=== PATIENT | female | born 1960 | race Hispanic/Latino ===

== ENCOUNTER 2018-02-12 18:41 | Emergency (ER) | payer OTHER ==
[2018-02-12 18:55] VITALS: BP 138/71; PULSE 70; RESP 19; TEMP 97.6; O2SAT 97
--- NOTE | 2018-02-12 20:02 | ED PDOC ---
Lower Extremity Pain/Injury Time Seen by Provider: 02/12/18 19:02 Chief Complaint (Nursing): Lower Extremity Problem/Injury Chief Complaint (Provider): Lower Extremity Problem/Injury History Per: Patient History/Exam Limitations: no limitations Onset/Duration Of Symptoms: Days (~21) Current Symptoms Are (Timing): Still Present Additional Complaint(s): 57 year old female presents to the ED with complaints of right knee and right lower leg pain for the last three weeks. Patient states it is only painful when she walks or bears weight. Patient expresses concern for DVT because she is currently on hormone therapy to alleviate menopause symptoms. Patient describes pain as a pulling sensation and has not taken any medications for it prior to arrival. Patient denies trauma, falls, shortness of breath, chest pain, fever, calf tenderness, pedal edema, nausea, vomiting, abdominal pain, prolonged immobility, and control use in the past. PMD: Dr. Rohan Salcedo ([facility]) Past Medical History Reviewed: Historical Data, Nursing Documentation, Vital Signs Vital Signs: Last Vital Signs Temp 97.6 F 02/12/18 18:51 Pulse 70 02/12/18 18:51 Resp 19 02/12/18 18:51 BP 138/71 02/12/18 18:51 Pulse Ox 97 02/12/18 18:51 - Medical History PMH: Depression, Osteoporosis Other PMH: A2 - Surgical History Surgical History: Appendectomy - Family History Family History: States: Unknown Family Hx - Social History Current smoker - smoking cessation education provided: No Alcohol: None Drugs: Other (Occasional Marijuana) - Home Medications Home Medications: Ambulatory Orders Medication Instructions Recorded Meloxicam [Mobic] 15 mg PO DAILY #14 tab 02/12/18 - Allergies Allergies/Adverse Reactions: Allergies Allergy/AdvReac Type Severity Reaction Status Date / Time No Known Allergies Allergy Verified 02/12/18 18:50 Review of Systems ROS Statement: Except As Marked, All Systems Reviewed And Found Negative Musculoskeletal: Positive for: Leg Pain (right lower leg), Other (right knee pain) Physical Exam - Reviewed Nursing Documentation Reviewed: Yes Vital Signs Reviewed: Yes - Physical Exam Comments: GENERAL APPEARANCE: Patient is awake, alert, oriented x 3, in no acute distress , ambulatory in the ED with a steady gait. SKIN: Warm, dry; (-) cyanosis. NECK: Supple, FROM (-) tenderness ENT: Mucus membranes moist. LOWER EXTREMITY: Knee: (-) reproducible tenderness of the right knee, (-) effusion, (-) ecchymosis, (+) full ROM with (+) mild pain on flexion, (-) skin break, (-) swelling, (-) erythema, , (-) palpable cord, (-) calf tenderness, (- ) instability of valgus or varus stress, (-) anterior and posterior draw sign. CHEST AND RESPIRATORY: (-) rales, (-) rhonchi, (-) wheezes; breath sounds equal bilaterally. Speaking in full sentences, respirations even and nonlabored. HEART AND CARDIOVASCULAR: (-) irregularity; (-) murmur, (-) gallop, (+) distal pulses. ABDOMEN AND GI: Soft; (-) tenderness (-) guarding (-) rebound. NEUROLOGIC: (+) distal sensation and strength intact - Laboratory Results Result Diagrams: 02/12/18 20:24 02/12/18 20:24 - ECG O2 Sat by Pulse Oximetry: 97 (RA) Pulse Ox Interpretation: Normal Medical Decision Making Medical Decision Making: Clinical Impression: Plan: -- CMP -- CBC (with differentials) -- Partial Thromboplastin (COAG) STAT -- Prothrombin (COAG) STAT -- Knee X-Ray (3 views) -- Toradol 30 mg IVP STAT -- IV Insertion (Saline) -- Duplex Lower Extremity Vein Right (US) STAT Time: 2105 Patient refused X-Ray at this time. 2140 U/S reviewed, radiology report follows EXAM: US Duplex Right Lower Extremity Veins EXAM DATE/TIME: 02/12/2018 7:41 PM CLINICAL HISTORY: 57 years old, female; Pain; Leg, lower; Right; Additional info: R/O dvt TECHNIQUE: Real-time duplex ultrasound scan of the right lower extremity veins integrating B-mode twodimensional vascular structure, Doppler spectral analysis, color flow Doppler imaging and compression. COMPARISON: No relevant prior studies available. FINDINGS: Deep veins: No DVT in the visualized common femoral, femoral, proximal deep femoral or popliteal veins. The veins demonstrate normal color flow, are normally compressible, with normal phasic flow and/or augmentation response. Calf veins are patent where imaged. Superficial veins: No thrombus in the visualized great saphenous vein. Soft tissues: No acute findings. No popliteal cyst. IMPRESSION: Normal right lower extremity duplex venous ultrasound. Thank you for allowing us to participate in the care of your patient. Dictated and Authenticated by: Daryn Anna MD 02/12/2018 9:21 PM Eastern Time ([place] & [place]) On re-evaluation, patient reports improvement of symptoms, denies any SOB at this time. On exam, patient remains AAOx3, in no acute distress. On exam, neck is supple, lungs CTA, cardiac RRR, abdomen is soft and non-tender, neuro exam shows no focal findings. VSS. Diagnostic results d/w the patient in great detail. Dx of acute knee pain d/w the patient. Based on history, exam and diagnostic results plan will be for outpatient follow up. Advised to follow up with primary care physician in 1-2 days without fail. Advised to take medication as prescribed. Return to the emergency room at any time for any new or worsening symptoms. Patient states she fully agrees with and understands discharge instructions. States that she agrees with the plan and disposition. Verbalized and repeated discharge instructions and plan. I have given the patient opportunity to ask any additional questions. Scribe Attestation: Documented by Michael Kenny, acting as a scribe for Kimi Gutierrez PA-C. Provider Scribe Attestation: All medical record entries made by the Scribe were at my direction and personally dictated by me. I have reviewed the chart and agree that the record accurately reflects my personal performance of the history, physical exam, medical decision making, and the department course for this patient. I have also personally directed, reviewed, and agree with the discharge instructions and disposition. Disposition - Clinical Impression Clinical Impression: Acute knee pain - Patient ED Disposition Is Patient to be Admitted: No Counseled Patient/Family Regarding: Studies Performed, Diagnosis, Need For Followup, Rx Given - Disposition Disposition: Routine/Home Disposition Time: 21:54 Condition: STABLE Additional Instructions: FOLLOW UP WITH PMD PLANNED FOR FURTHER EVALUATION. Prescriptions: Meloxicam [Mobic] 15 mg PO DAILY #14 tab Instructions: Osteoarthritis, Knee Pain Forms: [facility] (Faroese) Print Language: ZIMBABWEAN - POA Present On Arrival: None Results - Lab Results Lab Results: 02/12/18 02/12/18 02/12/18 20:24 20:24 20:24 WBC 6.3 RBC 3.95 Hgb 13.6 Hct 39.8 MCV 100.9 H MCH 34.5 H MCHC 34.3 RDW 13.1 Plt Count 382 MPV 7.3 Neut % (Auto) 42.0 L Lymph % (Auto) 48.3 H Otoe % (Auto) 6.8 Eos % (Auto) 1.8 Baso % (Auto) 1.1 Neut # (Auto) 2.7 Lymph # (Auto) 3.1 Otoe # (Auto) 0.4 Eos # (Auto) 0.1 Baso # (Auto) 0.1 PT 11.4 INR 1.0 APTT 30.8 Sodium 140 Potassium 3.9 Chloride 102 Carbon Dioxide 27 Anion Gap 15 BUN 14 Creatinine 0.8 Est GFR ( Amer) > 60 Est GFR (Non-Af Amer) > 60 Random Glucose 107 H Calcium 9.4 Total Bilirubin 0.6 AST 28 ALT 37 Alkaline Phosphatase 43 Total Protein 7.4 Albumin 4.2 Globulin 3.2 Albumin/Globulin Ratio 1.3
[2018-02-12 20:30] LABS: BASO # 0.1 K/uL (0.0-0.2); BASO % 1.1 % (0.0-2.0); EOS # 0.1 K/uL (0.0-0.7); EOS % 1.8 % (0.0-4.0); HEMOGLOBIN 13.6 g/dL (12.0-16.0); LYMPH # 3.1 K/uL (1.0-4.3); LYMPH % 48.3 % (20.0-40.0); MEAN CELL VOLUME 100.9 fl (81.0-99.0); MEAN CORPUSCULAR HEMOGLOBIN 34.5 pg (27.0-31.0); MEAN CORPUSCULAR HGB CONC 34.3 g/dL (33.0-37.0); MEAN PLATELET VOLUME 7.3 fl (7.2-11.7); MONO # 0.4 K/uL (0.0-0.8); MONO % 6.8 % (0.0-10.0); NEUT # 2.7 K/uL (1.8-7.0); RBC 3.95 Mil/uL (3.80-5.20); RED CELL DISTRIBUTION WIDTH 13.1 % (11.5-14.5); WHITE BLOOD COUNT 6.3 K/uL (4.8-10.8)
[2018-02-12 20:41] LABS: ALB/GLOB RATIO 1.3 (1.0-2.1); ALBUMIN 4.2 g/dL (3.5-5.0); ALT/SGPT 37 U/L (9-52); AST/SGOT 28 U/L (14-36); BLOOD UREA NITROGEN 14 mg/dl (7-17); CALCIUM 9.4 mg/dL (8.4-10.2); GFR AFRICAN-AMERICAN > 60; GFR NON-AFRICAN AMERICAN > 60
[2018-02-12 20:47] LABS: PROTHROMBIN TIME 11.4 Seconds (9.8-13.1)
[2018-02-12 20:48] LABS: PARTIAL THROMBOPLASTIN TIME 30.8 Seconds (25.6-37.1)
--- NOTE | 2018-02-13 10:42 | US ---
PROCEDURE: Venous duplex Doppler examination of the right lower extremity. HISTORY: r/o DVT . PRIORS: None. FINDINGS: 2-D, color and duplex Doppler analysis of the lower extremity venous circulation using routine protocol from the femoral veins through the popliteal veins. Venous compressibility: Normal. Flow and augmentation patterns: Normal. Visualized veins upper third of calf: Normal. Garcia cyst: None. IMPRESSION: No sonographic or Doppler evidence for DVT in l right lower extremity. A preliminary report was provided by [employer].
== END 2018-02-12 22:29 | disposition home or self-care (01) ==
LOC: H.ER 18:41
DX: M25.561 Pain in right knee (principal)
CPT/HCPCS: 80053; 85025; 85610; 85730; 93971; 96374; 99283; J1885